=== PATIENT | male | born 1960 | race Caucasian/White ===

== ENCOUNTER → 2016-07-26 | Outpatient (CLI) | payer MEDICARE, MEDICAID ==
[2016-07-26 17:07] LABS: ALBUMIN 4.2 gm/dL (3.5-5.0); ALK PHOS 75 IU/L (33-138); ALT 29 IU/L (12-78); ANION GAP 12.1 (10.0-19.0); AST 15 IU/L (10-40); BLOOD UREA NITROGEN 13 mg/dL (6-24); CALCIUM 8.8 mg/dL (8.5-10.5); CHLORIDE 104 mMol/L (96-110); CO2 27 mMol/L (22-32); CREATININE 0.9 mg/dL (0.6-1.3); ESTIMATED GFR (MDRD EQUATION) > 60; POTASSIUM 4.1 mMol/L (3.7-5.1); SODIUM 139 mMol/L (135-145); TOTAL BILIRUBIN 0.4 mg/dL (0.0-1.5); TOTAL PROTEIN 7.4 g/dL (6.0-8.4)
== END | disposition disaster alternative care site (69) ==
LOC: LNHI 16:38
PROVIDERS: Internal Medicine Cardiovascular Disease
DX: I50.32 Chronic diastolic (congestive) heart failure (principal)